=== PATIENT | female | born 1985 | race Caucasian/White ===

== ENCOUNTER 2016-12-07 11:35 | Emergency (ER) | payer OTHER ==
[~2016-12-07] VITALS: Ht 170.2 cm; Wt 74.5 kg
[2016-12-07] MEDS ORDERED: PRENCHW PO (11:42)
[2016-12-07 12:23] VITALS: BP 94/61
[2016-12-07] MEDS ORDERED: ONDANSETRON 4 MG ORAL DISINTEGRATING TAB (S0181) PO ONE (12:45)
[2016-12-07 13:10] LABS: BASO % 0.5 % (0.0-1.0); EOS # 0.1 K/mm3 (0.0-0.50); EOS % 1.2 % (0.0-3.0); LARGE UNSTAINED CELL # 0.1 K/mm3 (0.0-0.4); LARGE UNSTAINED CELL % 1.5 % (0.0-4.0); LYMPH # 2.1 K/mm3 (1.5-6.5); LYMPH % 24.8 % (24.0-44.0); MEAN CORPUSCULAR VOLUME 84.3 fl (80.0-96.0); MONO # 0.3 K/mm3 (0.0-0.8); MONO % 4.3 % (0.0-5.0); NEUTROPHILS # 5.3 K/mm3 (1.8-7.7); NEUTROPHILS % 67.7 % (36.0-66.0); PLATELET COUNT, AUTOMATED 362 k/mm3 (150-450); RED CELL DISTRIBUTION WIDTH 14.3 % (11.5-14.5); WHITE BLOOD COUNT 7.8 K/mm3 (4.0-10.0)
[2016-12-07 13:12] LABS: ANION GAP 11 MEQ/L (8-16); BLOOD UREA NITROGEN 5 MG/DL (7-18); CALCIUM LEVEL 8.8 MG/DL (8.5-10.1); CARBON DIOXIDE LEVEL 23 MEQ/L (21-32); CHLORIDE LEVEL 106 MEQ/L (98-107); GLOMERULAR FILTRATION RATE > 60.0 (>60); GLUCOSE, FASTING 72 MG/DL (70-105); MAGNESIUM LEVEL 1.9 MG/DL (1.8-2.4); POTASSIUM SERUM 4.1 MEQ/L (3.5-5.1); SODIUM LEVEL 140 MEQ/L (136-145)
--- NOTE | 2016-12-08 17:16 | ECGEPIP ---
Stationary ECG Study [facility] - ED Test Date: 2016-12-07 Pat Name: BOZENA GUERRERO Department: Room: - Gender: F Local Superintendent: PB : 1985 Requested By: TIMOTHY HER PA-C. Order Number: [id number] Reading MD: Katie Matos Measurements Intervals [place] Rate: 81 P: 31 WI: 135 QRS: 76 QRSD: 96 T: 48 QT: 383 QTc: 447 Interpretive Statements SINUS RHYTHM WITH SINUS ARRHYTHMIA POSSIBLE RIGHT VENTRICULAR CONDUCTION DELAY NONSPECIFIC T-WAVE ABNORMALITY NO PRIOR FOR COMPARISON Electronically Signed On 12-08-2016 17:16:17 EDT by Katie Matos
== END 2016-12-07 13:30 | disposition home or self-care (01) ==
LOC: M ED 11:35
DX: O99.412 Diseases of the circulatory system complicating pregnancy, second trimester (principal); I95.1 Orthostatic hypotension; O9A.212 Injury, poisoning and certain other consequences of external causes complicating pregnancy, second trimester; S09.90XA Unspecified injury of head, initial encounter; W01.198A Fall on same level from slipping, tripping and stumbling with subsequent striking against other object, initial encounter; Y92.89 Other specified places as the place of occurrence of the external cause; Y93.89 Activity, other specified; Y99.8 Other external cause status; T85.9XXA Unspecified complication of internal prosthetic device, implant and graft, initial encounter; O99.112 Other diseases of the blood and blood-forming organs and certain disorders involving the immune mechanism complicating pregnancy, second trimester; D64.9 Anemia, unspecified; Z3A.19 19 weeks gestation of pregnancy; Z88.0 Allergy status to penicillin

== ENCOUNTER 2017-04-24 03:09 | Inpatient (IN) | payer OTHER ==
[2017-04-24] MEDS: LACTATED RINGER'S 1000 ML IV (04:02)
[2017-04-24 04:10] LABS: HEMATOCRIT 26.8 % (36.0-47.0); HEMOGLOBIN 8.2 g/dl (12.0-16.0); MEAN CORPUSCULAR HGB CONC 30.6 g/dl (32.0-36.5); MEAN CORPUSCULAR VOLUME 75.1 fl (80.0-96.0); PLATELET COUNT, AUTOMATED 359 10^3/uL (150-450); RED BLOOD COUNT 3.57 10^6/uL (4.00-5.40); RED CELL DISTRIBUTION WIDTH 15.3 % (11.5-14.5); WHITE BLOOD COUNT 7.9 10^3/uL (4.0-10.0)
[2017-04-24] MEDS ORDERED: FENTANYL 2MCG/ML ROPIVACAINE 0.2% IN 0.9% NACL 200ML IVBAG As Ordered (04:33)
[2017-04-24] MEDS ORDERED: NALOXONE INJ 0.4 MG/1 ML VIAL (J2310) IV (06:15)
[2017-04-24] MEDS ORDERED: REFRIGERATOR IV KEYS XX (06:15)
[2017-04-24] MEDS ORDERED: diphenhydrAMINE INJ 50MG/ML VIAL (J1200) IV (06:15)
[2017-04-24] MEDS ORDERED: EPIDURAL COMMENT XX (06:15)
[2017-04-24] MEDS ORDERED: EPIDURAL/PCA KEYS XX (06:15)
[2017-04-24] MEDS ORDERED: FENTANYL/ROPIVACAINE/NACL BAG 200 ML EPIDURAL (06:15)
[2017-04-24] MEDS ORDERED: LACTATED RINGER'S 1000 ML IV (06:15)
[2017-04-24 06:19] LABS: AMPHETAMINES URINE REFLEX NEGATIVE (NEGATIVE); BARBITURATES URINE REFLEX NEGATIVE (NEGATIVE); BENZODIAZEPINES URINE REFLEX NEGATIVE (NEGATIVE); CANNABINOIDS URINE REFLEX NEGATIVE (NEGATIVE); COCAINE METABOLITE URINE REFLE NEGATIVE (NEGATIVE); METHADONE URINE REFLEX NEGATIVE (NEGATIVE); OPIATES URINE REFLEX NEGATIVE (NEGATIVE); PHENCYCLIDINE URINE REFLEX NEGATIVE (NEGATIVE)
[2017-04-24] MEDS: ONDANSETRON 4MG/2ML VIAL (J2405) IV (06:42)
[2017-04-24] MEDS: ePHEDrine INJ 50 MG/ML VIAL IV ×2 (06:59→08:09)
[2017-04-24] MEDS: LR 1,000 ML IV ×2 (07:01→11:07)
[2017-04-24] MEDS ORDERED: OXYTOCIN 30 UNITS IN 0.9% NaCl 500ML IV BAG (J2590) As Ordered (07:26)
[2017-04-24] MEDS: PRENATAL VITAMINS CHEWABLE TABLET PO (09:00)
[2017-04-24] MEDS: DOCUSATE SODIUM 100 MG CAP PO ×2 (09:00→20:02)
[2017-04-24] MEDS: OXYTOCIN DRIP 30 UNITS in APPROPRIATE DILUENT 1 EA IV (10:17)
[2017-04-24] MEDS ORDERED: OXYTOCIN DRIP 30 UNITS in APPROPRIATE DILUENT 1 EA IV (11:40)
[2017-04-24] MEDS ORDERED: METOCLOPRAMIDE INJ 10MG/2ML VIAL (J2765) IV (11:45)
[2017-04-24] MEDS ORDERED: DIBUCAINE 1% OINTMENT 30GM TOP (11:45)
[2017-04-24] MEDS: IBUPROFEN 800 MG TAB PO (18:28)
[2017-04-24] MEDS: RHOGAM 300 MCG (1500 IU) INJ (J2790) IM (19:29)
[2017-04-24] MEDS: MEASLES,MUMPS,RUBELLA VACCINE INJ (MMR-II) (90707) SC (19:29)
[2017-04-25] MEDS: ACETAMINOPHEN TAB 650MG DOSE (2X325MG) PO (02:13)
[2017-04-25] MEDS: PRENATAL VITAMINS CHEWABLE TABLET PO (09:07)
[2017-04-25] MEDS: DOCUSATE SODIUM 100 MG CAP PO (09:07)
[2017-04-25] MEDS: ADACEL/BOOSTRIX VACCINE (DIPHTH/PERTUSS/ACELL/TETANUS)0.5ML SYR (90715) IM (09:08)
== END 2017-04-25 12:30 | disposition home or self-care (01) | DRG 775 ==
LOC: M LDO 03:09 → M LDI 03:44 → M OBS 13:44
PROVIDERS: Obstetrics & Gynecology
PROC: 10E0XZZ Delivery of Products of Conception, External Approach (ICD-10-PCS; principal; 2017-04-24)
DX: O42.02 Full-term premature rupture of membranes, onset of labor within 24 hours of rupture (principal); Z3A.38 38 weeks gestation of pregnancy; O99.844 Bariatric surgery status complicating childbirth; Z37.0 Single live birth

== ENCOUNTER → 2019-12-01 | Outpatient (CLI) | payer OTHER ==
[~2019-12-01] MED LIST: COLA100C5 PO; IBUP-1114 PO; MAPA500T2 PO; NUPE1OIN2 TOP; PRENCHW PO
--- NOTE | 2019-12-23 07:57 | REP ---
RIGHT HAND SERIES CLINICAL: Fifth digit pain with trauma. TECHNIQUE: AP, lateral, and bilateral oblique views of the right hand. FINDINGS: Osseous structures, joint spaces, and surrounding soft tissues are normal. No acute fracture or dislocation. No subcutaneous emphysematous or radiodense foreign body. IMPRESSION: Normal examination. No evidence for acute injury. DD: PRECIOUS
== END ==
LOC: M LRY 10:39
PROVIDERS: ATTEND Physician Assistant
DX: S60.051A Contusion of right little finger without damage to nail, initial encounter (principal); X58.XXXA Exposure to other specified factors, initial encounter; Y92.9 Unspecified place or not applicable